=== PATIENT | male | born 1965 | race Caucasian/White ===

== ENCOUNTER → 2024-01-21 16:36 | Outpatient (REF) | payer OTHER, SELFPAY | LOC: RAD 16:36 | PROVIDERS: ATTENDING PHYSICIAN Internal Medicine; FAMILY PHYSICIAN Family Medicine | DX: Z87.891 Personal history of nicotine dependence (principal) | CPT/HCPCS: 71271 ==

== ENCOUNTER → 2025-01-12 15:44 | Outpatient (REF) | payer OTHER, SELFPAY | LOC: RCS 15:44 | PROVIDERS: ATTENDING PHYSICIAN Internal Medicine Cardiovascular Disease; FAMILY PHYSICIAN Family Medicine | DX: R06.09 Other forms of dyspnea (principal) | CPT/HCPCS: 93306 ==

== ENCOUNTER 2025-01-18 06:41 | Day surgery (SDC) | payer OTHER, SELFPAY ==
[2025-01-18] VITALS (19 sets, daily range): BP systolic 111–146; BP diastolic 61–92; BMI 32.8
[2025-01-18] MEDS: NSS 316 ML IV (07:15)
[2025-01-18] MEDS: LASIX 40 MG IV (09:11)
--- NOTE | 2025-01-18 09:12 | ITS.CL.CATH ---
[facility] - Catheterization
Cardiac Catheterization
Procedure Report:
CARDIAC CATHETERIZATION REPORT
Date of Procedure: 01/18/2025
Referring: Cristofer Sethi D.O.
Indication: Persistent dyspnea on exertion, previously documented focal hypokinesis on echocardiography, concern for anginal equivalent.
PROCEDURE:
1. Right heart catheterization.
2. Coronary angiography.
3. Left heart catheterization.
4. Attempted PCI of distal left circumflex, ultimately discovering that this lesion is a PRODUCTION LEAD.
A total of 25 minutes of procedural/moderate sedation was utilized. An independent medical billing supervisor was present to assist with and help manage the patient's level of consciousness and physiologic status.
ACCESS:
1. 6 [place] right radial artery using a modified Seldinger technique.
2. 5 [place] right vein using a previously placed IV.
CATHETERS:
1. 5 [place] balloon with.
2. 5 [place] JL 3.5.
3. 5 [place] JR4.
4. 6 [place] EBU 3.5 guiding catheter.
HEMODYNAMIC DATA
Weight (kg): 105.2
AO (s/d/x, mmHg): 136/80/95
LV (s/x, mmHg): 136/24
PCWP (a/v/x, mmHg): 28/36/25
PA (s/d/x, mmHg): 44/25/31
RV (s/x, mmHg): 44/13
RA (a/v/x, mmHg): 18/16/14
SVC SvO2 (%): 73.3
IVC SvO2 (%): Not obtained.
RA SvO2 (%): Not obtained.
RV SvO2 (%): Not obtained.
PA SvO2 (%): 74.2
SaO2 (%): 95.1
Hbg (g/dL): 14.0
LIOR
CO (L/min): 6.99
CI (L/min/m2): 3.14
Thermodilution
CO (L/min): Not performed.
CI (L/min/m2): Not performed.
TPG (mmHg): 6
PVR (Kennedy Units): 0.86
SVR (dynes*seconds*cm^-5): 927
AVO2 Diff (Volume %): 3.98
AV gradient (x, mmHg): None.
AV area (cm2): Normal.
MV gradient (x, mmHg): Not obtained.
MV area (cm2): Not obtained.
LEFT VENTRICULOGRAPHY: Not performed.
AORTOGRAPHY: Not performed.
CORONARY ANGIOGRAPHY
Dominance: Right.
Left Main: Normal size, bifurcating vessel. There is no coronary artery disease.
LAD: Normal size vessel giving rise to 2 diagonals. There is a 30% lesion in the mid LAD followed by a densely calcified 30 to 40% lesion in the mid to distal LAD spanning the origin of the second diagonal.
Ramus: Congenitally absent.
Circumflex: Normal size, nondominant vessel giving rise to 2 obtuse marginals. The distal circumflex is severely diseased immediately after the origin of OM1 and ultimately chronically totally occluded before the origin of the smaller OM 2. OM 2
is supplied by collaterals from the distal LAD and diagonal arteries.
RCA: Large size, dominant vessel with a fair sized posterolateral arcade. There are minor luminal irregularities.
INTERVENTIONS
1. Attempted PCI of the distal circumflex into OM 2, ultimately revealing that the lesion is a chronic total occlusion, unamenable to wire escalation.
Narrative:
Given the patient's prior hypokinesis in the culprit vessel territory and his persistent symptoms on 2 antianginal medications with a relatively short appearing occlusion, the decision was made to proceed with an attempt at percutaneous coronary
intervention. The diagnostic catheter was removed over a wire and a 6Fr EBU 3.5 guiding catheter was advanced to the aortic root and seated in the left main coronary artery. Additional heparin was given and a Power Turn Flex wire was advanced into
the left circumflex artery using a microcatheter for support. The power turn flex wire was advanced into the distal circumflex, and enter the artery with relative ease. We advanced the microcatheter for support. The power turn flex wire would not
pass beyond the distal circumflex occlusion. The power turn flex wire was withdrawn and a whisper wire was advanced with a PRODUCTION LEAD bend. With this wire, we were able to make slight progress and advance the microcatheter slightly farther. Again, we
ran into difficulty entering the true lumen of the distal vessel with the wire tracking medially and laterally. The microcatheter was pulled back and we reapproached, again tacking away from the distal true lumen. The whisper wire was withdrawn
and a Fielder XT wire was advanced through the microcatheter and into the distal circumflex. Once again, this wire appeared to make modest progress, this time tracking more caudal along the known trajectory of the circumflex artery. Unfortunately,
it became clear that this wire was also out of plane and likely in a dissection plane, not entering the true lumen. Repeat angiography demonstrated stable collateralization of the distal circumflex. Given our inability to engage the wire into the
true lumen, the decision was made to discontinue our revascularization efforts and focus on medical management as this vessel was clearly a chronic total occlusion.
The coronary wire was withdrawn and the guide was disengaged from the artery. The catheter was removed over a standard J-wire.
Closure Device: Vascular band for the right radial artery, manual pressure for the right antecubital vein.
Radiation dose (mGy): 878.19
DAP (cm2.Gy): 72.2400
Fluoroscopy time (minutes): 11.2
CONCLUSIONS:
1. Right dominant circulation with a 30% lesion in the mid LAD followed by densely calcified 30 to 40% lesion in the mid to distal LAD spanning the origin of OM 2, luminal irregularities in the RCA and a chronic total occlusion of the distal
circumflex leading into the second obtuse marginal, unamenable to wire escalation.
2. Severely elevated filling pressures (LVEDP = 24 mmHg, PCWP = 25 mmHg at 105.2 kg).
RECOMMENDATIONS:
1. Expectant management after cardiac catheterization via right radial/antecubital approach.
2. Limited weight bearing on the right wrist for one week.
3. Aggressive secondary prevention with aspirin, high-dose, high potency statin.
4. Given the collaterals supplying the second obtuse marginal, his symptoms are more likely related to his elevated filling pressures rather than a true anginal equivalent. Coronary disease will be medically managed.
5. Start furosemide 40 mg p.o. daily with BMP in 1 week to monitor renal function.
6. Start dapagliflozin 10 mg daily for clinical HFpEF.
7. OMT/GDMT as hemodynamics will tolerate.
8. Stable for outpatient follow-up.
Copy to: Cristofer Sethi D.O., Anant Loo M.D.
Cristofer Sethi DO, FACC, FACP
[2025-01-18 11:59] LABS: ACT-LR - POC > 397 Seconds (116-155)
== END 2025-01-18 13:00 | disposition home or self-care (01) ==
LOC: CATH 06:41
PROVIDERS: ATTENDING PHYSICIAN Internal Medicine Cardiovascular Disease; FAMILY PHYSICIAN Family Medicine
DX: I25.10 Atherosclerotic heart disease of native coronary artery without angina pectoris (principal); I25.82 Chronic total occlusion of coronary artery; I10 Essential (primary) hypertension; G47.33 Obstructive sleep apnea (adult) (pediatric); R06.09 Other forms of dyspnea
CPT/HCPCS: 99152; 99153; 85347; 93460; Q9967

== ENCOUNTER 2025-02-07 06:20 | Day surgery (SDC) | payer OTHER, SELFPAY | END 2025-02-07 09:03 | disposition home or self-care (01) | LOC: GI 06:20 | PROVIDERS: ATTENDING PHYSICIAN Internal Medicine Gastroenterology | DX: Z12.11 Encounter for screening for malignant neoplasm of colon (principal); K57.30 Diverticulosis of large intestine without perforation or abscess without bleeding; D12.3 Benign neoplasm of transverse colon; K63.5 Polyp of colon; K62.1 Rectal polyp; Z86.0100 Personal history of colon polyps, unspecified | CPT/HCPCS: 45385; 45380; 88305 ==

== ENCOUNTER → 2025-03-08 16:18 | Outpatient (REF) | payer OTHER, SELFPAY | LOC: RAD 16:18 | PROVIDERS: ATTENDING PHYSICIAN Family Medicine | DX: Z87.891 Personal history of nicotine dependence (principal) | CPT/HCPCS: 71271 ==